=== PATIENT | female | born 1970 | race African-American/Black ===

== ENCOUNTER → 2017-06-29 | Outpatient (CLI) | payer BC, OTHER ==
[2017-06-29 09:55] LABS: ISTAT CREATININE 0.8 mg/dL (0.6-1.1)
[2017-06-29] MEDS: GADOBUTROL 10 MMOL/10 ML VIAL IV (10:02)
== END | disposition home or self-care (01) ==
LOC: KCIC MRI 09:01
DX: K76.89 Other specified diseases of liver (principal); J98.11 Atelectasis; R93.2 Abnormal findings on diagnostic imaging of liver and biliary tract
CPT/HCPCS: 74183; 82565; A9585